=== PATIENT | female | born 1990 | race Caucasian/White ===

== ENCOUNTER 2017-05-12 14:49 | Emergency (ER) | payer MEDICAID, OTHER ==
[2017-05-12 14:57] VITALS: BP 106/61
--- NOTE | 2017-05-12 15:39 | ED Physician Documentation ---
History of Present Illness - Stated complaint Stated Complaint: HAND/FOOT/MOUTH EXP - Chief complaint Chief Complaint: General - History obtained from History obtained from: Patient, Family - History of Present Illness Timing: How many weeks ago (1) Pain level max: 6 Pain level now: 6 Improved by: nothing Worsened by: swallowing - Additonal information Additional information: Patient is a 26-year-old female who presents to the emergency department complaining of mouth, throat and hand pain. Her child was recently diagnosed with [id number]-[id number]-mouth disease. Review of Systems Constitutional: denies: Fever, Chills Nose: denies: Rhinorrhea / runny nose, Congestion Respiratory: denies: Cough GI: denies: Abdominal Pain, Nausea, Vomiting, Diarrhea : denies: Dysuria, Now EGA Skin: denies: Rash Musculoskeletal: denies: Neck pain, Back pain Neurologic: denies: Headache PD PAST MEDICAL HISTORY - Past Medical History Past Medical History: Yes Psych: Depression - Past Surgical History Past Surgical History: No - Present Medications Home Medications: Ambulatory Orders Medication Instructions Recorded Confirmed FLUoxetine [PROzac] 20 mg DAILY 05/12/17 05/12/17 - Allergies Allergies/Adverse Reactions: Allergies Allergy/AdvReac Type Severity Reaction Status Date / Time No Known Drug Allergies Allergy Verified 05/12/17 14:56 - Living Situation Living Situation: reports: With family Living Arrangement: reports: At home PD ED PE NORMAL - Vitals Vital signs reviewed: Yes - General General: Alert and oriented X 3, No acute distress, Well developed/nourished - HEENT HEENT: PERRL, Ears normal, Moist mucous membranes, Other (vesicles and ulcerations to the roof of the mouth, base of tongue. ) - Neck Neck: Supple, no meningeal sign - Cardiac Cardiac: RRR - Respiratory Respiratory: No respiratory distress, Clear bilaterally - Derm Derm: Warm and dry, No rash - Neuro Neuro: Alert and oriented X 3 - Psych Psych: Normal mood, Normal affect Results - Vitals Vitals: Vital Signs - 24 hr 05/12/17 14:53 Temperature 36.3 C L Heart Rate 88 Respiratory 16 Rate Blood Pressure 106/61 O2 Saturation 100 Oxygen O2 Source Room air PD MEDICAL DECISION MAKING - ED course Complexity details: considered differential, d/w patient ED course: Patient is a 26-year-old female who presents to the emergency department what appears to be lpin-zvmb-wvc-mouth disease. Will prescribe Magic mouthwash for home and follow-up closely with her doctor. She is well-appearing, nontoxic. Afebrile. She is not , breast-feeding or trying to become . Patient counseled regarding signs and symptoms for which I believe and urgent re -evaluation would be necessary. Patient with good understanding of and agreement to plan and is comfortable going home at this time This document was made in part using voice recognition software. While efforts are made to proofread this document, sound alike and grammatical errors may occur. Departure - Departure Disposition: 01 Home, Self Care Clinical Impression: Hand, foot and mouth disease Condition: Good Instructions: ED Hand Foot Mouth Disease Ch Follow-Up: your,doctor in 1 week [Other] Comments: Return if you worsen. This should improve over the next few days. Forms: Activity restrictions Discharge Date/Time: 05/12/17 15:52
== END 2017-05-12 15:52 | disposition home or self-care (01) ==
LOC: ED 14:49
DX: B08.4 Enteroviral vesicular stomatitis with exanthem (principal)
CPT/HCPCS: 99282; 99283

== ENCOUNTER 2017-06-15 10:36 | Emergency (ER) | payer MEDICAID ==
[2017-06-15 10:51] VITALS: BP 108/61
[2017-06-15 11:09] LABS: RAPID STREP SCREEN REAGENT QC YELLOW (YELLOW)
--- NOTE | 2017-06-15 12:16 | ED Physician Documentation ---
PD HPI URI - Stated complaint Stated Complaint: SORE THROAT - Chief complaint Chief Complaint: Heent - History obtained from History obtained from: Patient - History of Present Illness Timing - onset: How many days ago (3) Timing duration: Days (2) Timing details: Abrupt onset, Still present Associated symptoms: Fever, Chills, Ear pain (right), Sore throat, Swollen nodes. No: Nasal congestion, Rhinorrhea, Dry cough, NVD Contributing factors: No: Sick contact, Travel, Immunocompromised Similar symptoms before: Diagnosis (strep tonsillitis) Recently seen: Not recently seen Review of Systems Constitutional: reports: Fever, Chills Ears: reports: Ear pain (right). denies: Loss of hearing Throat: reports: Sore throat. denies: Dental pain / toothache Respiratory: denies: Dyspnea, Cough GI: denies: Abdominal Pain, Nausea, Vomiting, Diarrhea Skin: denies: Rash, Lesions PD PAST MEDICAL HISTORY - Past Medical History Cardiovascular: None Respiratory: None Neuro: None Endocrine/Autoimmune: None HEENT: None Psych: Depression - Past Surgical History Past Surgical History: No Ortho: Other - Present Medications Home Medications: Ambulatory Orders Medication Instructions Recorded Confirmed FLUoxetine [PROzac] 20 mg DAILY 05/12/17 06/15/17 Cephalexin [Keflex] 500 mg PO TID #21 capsule 06/15/17 Dexamethasone [Decadron] 4 mg PO DAILY #5 tablet 06/15/17 HYDROcod/ACETAM 5/325 [[place] 5/325] 1 tab PO Q6H PRN #15 tablet 06/15/17 - Allergies Allergies/Adverse Reactions: Allergies Allergy/AdvReac Type Severity Reaction Status Date / Time No Known Drug Allergies Allergy Verified 06/15/17 10:50 - Social History Does the pt smoke?: Yes Smoking Status: Current every day smoker Does the pt drink ETOH?: Yes Does the pt have substance abuse?: Yes - Immunizations Immunizations are current?: Yes - POLST Patient has POLST: No PD ED PE NORMAL - Vitals Vital signs reviewed: Yes - General General: Alert and oriented X 3, Well developed/nourished - HEENT HEENT: Ears normal, Moist mucous membranes, Dentition benign. No: Pharynx benign (marked redness and exudates on tonsils, right more than left, without peritonsillar swelling. Anterior adenopathy that is tender anterior neck.) - Neck Neck: Supple, no meningeal sign - Cardiac Cardiac: RRR, No murmur - Respiratory Respiratory: Clear bilaterally - Abdomen Abdomen: Soft, Non tender - Derm Derm: Normal color, Warm and dry, No rash Results - Vitals Vitals: Vital Signs - 24 hr 06/15/17 10:49 Temperature 36.3 C L Heart Rate 80 Respiratory 14 Rate Blood Pressure 108/61 O2 Saturation 100 Oxygen O2 Source Room air - Labs Labs: Laboratory Tests 06/15/17 10:54 Group A Strep Rapid Negative PD MEDICAL DECISION MAKING - ED course Complexity details: reviewed results, considered differential (clinically with 4 /4 Centor, so will empirically treat pending culture results.), d/w patient Departure - Departure Disposition: 01 Home, Self Care Clinical Impression: Tonsillitis with exudate Condition: Stable Record reviewed to determine appropriate education?: Yes Instructions: ED Strep Pharyngitis Poss Follow-Up: Dorothea Lambert PA [Primary Care Provider] - Prescriptions: Dexamethasone [Decadron] 4 mg PO DAILY #5 tablet Cephalexin [Keflex] 500 mg PO TID #21 capsule HYDROcod/ACETAM 5/325 [[place] 5/325] 1 tab PO Q6H PRN #15 tablet PRN Reason: Pain Comments: This looks suspiciously like bacterial tonsillitis and so we will treat it with antibiotics pending the culture. Cephalexin 3 times a day for a week as directed. Dexamethasone daily for 5 more days to help with the swelling of it. Tylenol as needed for pain. Add hydrocodone if needed. Drink lots of fluids. Recheck if not improved over the next 2-3 days. The culture results will be available in 2-3 days that will help guide us if it is not improving. The culture results will be available in 2-3 days and will help guide us if it is not improving. Discharge Date/Time: 06/15/17 12:50
[2017-06-15] MEDS ORDERED: DEXAMETHASONE 10 MG/ML VIAL PO STA (12:31)
[2017-06-15] MEDS ORDERED: CEPHALEXIN 250 MG CAPSULE PO STA (12:31)
[2017-06-15] MEDS ORDERED: HYDROcod/ACETAM 5/325 MG TABLET PO STA (12:31)
[2017-06-15] MEDS ORDERED: CEPHALEXIN 250 MG CAPSULE PO ONE (12:44)
[2017-06-15] MEDS ORDERED: DEXAMETHASONE 10 MG/ML VIAL ONE (12:44)
[2017-06-15] MEDS ORDERED: HYDROcod/ACETAM 5/325 MG TABLET ONE (12:44)
== END 2017-06-15 12:50 | disposition home or self-care (01) ==
LOC: ED 10:36
DX: J03.90 Acute tonsillitis, unspecified (principal); F17.200 Nicotine dependence, unspecified, uncomplicated
CPT/HCPCS: 87070; 87430; 99283; A9270

== ENCOUNTER 2018-06-24 08:00 | Outpatient (CLI) | payer MEDICAID ==
[2018-06-24 14:16] LABS: MUDS CUTOFF CONCENTRATIONS CUTOFF CONC BELOW:
[2018-06-24 14:46] LABS: AMPHETAMINE SCREEN,URINE NEGATIVE (NEGATIVE); BENZODIAZEPINES SCREEN, URINE NEGATIVE (NEGATIVE); COCAINE SCREEN URINE NEGATIVE (NEGATIVE); METHADONE SCREEN, URINE NEGATIVE (NEGATIVE); METHAMPHETAMINES SCREEN, URINE NEGATIVE (NEGATIVE); OPIATE SCREEN, URINE NEGATIVE (NEGATIVE); OXYCODONE SCREEN, URINE NEGATIVE (NEGATIVE); PROPOXYPHENE SCREEN, URINE NEGATIVE (NEGATIVE); TRICYCLIC ANTIDEPRESSANT,URINE NEGATIVE (NEGATIVE)
== END 2018-06-24 08:01 ==
LOC: LAB.R 08:00
PROVIDERS: ATTEND Nurse Practitioner Obstetrics & Gynecology
DX: Z36.9 Encounter for antenatal screening, unspecified (principal)
CPT/HCPCS: 80306; 87491; 87591

== ENCOUNTER 2018-06-26 00:24 | Outpatient (CLI) | payer MEDICAID ==
[2018-06-26] MEDS ORDERED: LACTATED RINGERS 1,000 ML IV ONE (01:00)
[2018-06-26] MEDS ORDERED: ONDANSETRON 4 MG/2 ML VIAL IVP SCH (01:10)
[2018-06-26] MEDS ORDERED: ONDANSETRON 4 MG/2 ML VIAL ONE (01:32)
[2018-06-26 02:14] LABS: BILIRUBIN,URINE NEGATIVE (NEGATIVE); GLUCOSE, URINE (UA) NEGATIVE (NEGATIVE); KETONES,URINE (UA) 40 mg/dL (NEGATIVE); LEUKOCYTE ESTERASE, URINE NEGATIVE (NEGATIVE); NITRITE,URINE NEGATIVE (NEGATIVE); OCCULT BLOOD,URINE NEGATIVE (NEGATIVE); PROTEIN,URINE NEGATIVE (NEGATIVE); UROBILINOGEN,URINE 0.2 (NORMAL) E.U./dL (NORMAL)
[2018-06-26 02:14] LABS: BASOPHILS % (AUTO) 0.3 %; EOSINOPHILS # (AUTO) 0.1 10^3/uL (0.0-0.7); EOSINOPHILS % (AUTO) 0.9 %; HGB - HEMOGLOBIN 12.1 g/dL (12.0-16.0); LYMPHOCYTES # (AUTO) 1.6 10^3/uL (1.5-3.5); LYMPHOCYTES % (AUTO) 15.3 %; MEAN CORPUSCULAR HEMOGLOBIN 32.1 pg (27.0-31.0); MEAN CORPUSCULAR HGB CONC 35.5 g/dL (32.0-36.0); MEAN CORPUSCULAR VOLUME 90.4 fL (81.0-99.0); MEAN PLATELET VOLUME 7.9 fL (7.9-10.8); MONOCYTES # (AUTO) 0.8 10^3/uL (0.0-1.0); MONOCYTES % (AUTO) 8.2 %; NEUTROPHILS # (AUTO) 7.6 10^3/uL (1.5-6.6); NEUTROPHILS % (AUTO) 75.3 %; PLT - PLATELET COUNT 202 10^3/uL (130-450); RED BLOOD COUNT 3.77 10^6/uL (4.20-5.40); RED CELL DISTRIBUTION WIDTH 12.4 % (12.0-15.0); WHITE BLOOD COUNT 10.1 x10^3/uL (4.8-10.8)
[2018-06-26 02:15] LABS: CLARITY,URINE CLEAR (CLEAR)
[2018-06-26 02:20] LABS: BACTERIA,URINE Rare /HPF (None Seen); RBC,URINE 0-5 /HPF (0-5); SQUAMOUS EPITHELIAL CELL,UR FEW Squamous (<= Few)
[2018-06-26] MEDS ORDERED: CALCIUM CARBONATE CHEW 500 MG TABLET PO SCH ×2 (02:35→03:00)
[2018-06-26] MEDS ORDERED: LACTATED RINGERS 1,000 ML IV SCH (03:11)
[2018-06-26] MEDS ORDERED: TERBUTALINE 1 MG/ML VIAL SUBQ ONE (03:12)
[2018-06-26 03:42] VITALS: BP 117/58
== END 2018-06-26 05:25 | disposition home or self-care (01) ==
LOC: WFO 00:24 → FBP 00:27 → WFO 05:25
PROVIDERS: ATTEND Nurse Practitioner Obstetrics & Gynecology
DX: O99.613 Diseases of the digestive system complicating pregnancy, third trimester (principal); K52.9 Noninfective gastroenteritis and colitis, unspecified; Z3A.29 29 weeks gestation of pregnancy
CPT/HCPCS: 81001; 82731; 85025; 96361; 96372; 96374; 99214; A9270; J7120; 87086

== ENCOUNTER 2018-06-26 12:38 | Outpatient (CLI) | payer MEDICAID ==
[2018-06-26 13:05] VITALS: BP 114/55
== END 2018-06-26 14:00 | disposition home or self-care (01) ==
LOC: WFO 12:38 → FBP 12:42 → WFO 14:00
PROVIDERS: ATTEND Nurse Practitioner Obstetrics & Gynecology
DX: O99.613 Diseases of the digestive system complicating pregnancy, third trimester (principal); K52.9 Noninfective gastroenteritis and colitis, unspecified; Z3A.29 29 weeks gestation of pregnancy
CPT/HCPCS: 99212

== ENCOUNTER 2018-06-30 13:39 | Outpatient (CLI) | payer MEDICAID ==
[2018-06-30 15:08] LABS: HGB - HEMOGLOBIN 11.4 g/dL (12.0-16.0); MEAN CORPUSCULAR HEMOGLOBIN 32.1 pg (27.0-31.0); MEAN CORPUSCULAR HGB CONC 35.1 g/dL (32.0-36.0); MEAN CORPUSCULAR VOLUME 91.3 fL (81.0-99.0); MEAN PLATELET VOLUME 7.4 fL (7.9-10.8); RED BLOOD COUNT 3.55 10^6/uL (4.20-5.40); RED CELL DISTRIBUTION WIDTH 12.9 % (12.0-15.0); WHITE BLOOD COUNT 8.2 x10^3/uL (4.8-10.8)
== END 2018-06-30 13:40 | disposition home or self-care (01) ==
LOC: LAB 13:39
PROVIDERS: ATTEND Nurse Practitioner Obstetrics & Gynecology
DX: Z36.9 Encounter for antenatal screening, unspecified (principal)
CPT/HCPCS: 36415; 82950; 85027; 86850